=== PATIENT | male | born 1980 | race American Indian/Alaskan Native ===

== ENCOUNTER 2016-10-20 20:38 | Emergency (ER) | payer SELFPAY ==
[2016-10-20 21:31] VITALS: BP 132/82
== END 2016-10-21 00:35 | disposition left against medical advice (07) ==
LOC: ED 20:38
DX: R06.2 Wheezing (principal); R05 Cough; J45.909 Unspecified asthma, uncomplicated; Z72.0 Tobacco use; Z53.21 Procedure and treatment not carried out due to patient leaving prior to being seen by health care provider